=== PATIENT | male | born 1995 | race Caucasian/White ===

== ENCOUNTER 2021-04-18 10:34 | Emergency (ER) | payer OTHER ==
[2021-04-18 10:40] VITALS: BP 122/68; PULSE 65; TEMP 98.4; BMI 29.1
[2021-04-18 11:45] LABS: BASO % 0.4 % (0-2.0); EOS % 2.4 % (0-4.5); HEMATOCRIT 46.4 % (35.4-49); HEMOGLOBIN 15.8 GM/dL (11.7-16.9); LYMPH % 31.7 % (8-40); MCH 28.7 pg (25.7-33.7); MEAN CELL VOLUME 84.4 fl (80-96); MEAN PLT VOLUME 8.6 fl (7.5-11.1); MONO % 9.8 % (3.8-10.2); NEUT % 55.7 % (42.8-82.8); PLATELET COUNT 196 10^3/uL (134-434); RDW 13.2 % (11.9-15.9); WHITE BLOOD COUNT 4.9 K/mm3 (4.0-10.0)
[2021-04-18 12:03] LABS: CHLORIDE 106 mmol/L (98-107); SODIUM 139 mmol/L (136-145)
[2021-04-18 12:05] LABS: CALCIUM 9.2 mg/dL (8.5-10.1)
[2021-04-18 12:06] LABS: ALBUMIN 4.3 g/dl (3.4-5.0); ANION GAP 5 MMOL/L (8-16); BLOOD UREA NITROGEN 12.3 mg/dL (7-18); CO2 28 mmol/L (21-32); GLUCOSE,RANDOM 88 mg/dL (74-106)
[2021-04-18 12:09] LABS: CREATININE 0.9 mg/dL (0.55-1.3); SGOT/AST 19 U/L (15-37); SGPT/ALT 30 U/L (13-61)
[2021-04-18 12:11] LABS: TOT PROT 7.7 g/dl (6.4-8.2)
[2021-04-18 12:12] LABS: ALK PHOS 102 U/L (45-117)
== END 2021-04-18 12:43 | disposition home or self-care (01) ==
LOC: JER 10:34
DX: R07.9 Chest pain, unspecified (principal)
CPT/HCPCS: 36415; 71046-TC-FY; 80053; 84443; 84484; 85025; 93005; 93010; 99284-25

== ENCOUNTER 2022-08-31 18:12 | Emergency (ER) | payer OTHER ==
[2022-08-31 18:30] VITALS: BP 134/74; PULSE 62; RESP 16; TEMP 98.6; BMI 31.1
[2022-08-31 21:07] LABS: BASO % 0.7 % (0-2.0); HEMATOCRIT 45.9 % (35.4-49); HEMOGLOBIN 15.4 GM/dL (11.7-16.9); LYMPH % 30.1 % (8-40); MCH 28.3 pg (25.7-33.7); MCHC 33.6 g/dl (32.0-35.9); MEAN CELL VOLUME 84.2 fl (80-96); MEAN PLT VOLUME 8.4 fl (7.5-11.1); MONO % 8.3 % (3.8-10.2); NEUT % 58.9 % (42.8-82.8); PLATELET COUNT 217 10^3/uL (134-434); RBC 5.45 M/mm3 (4.00-5.60); WHITE BLOOD COUNT 6.3 K/mm3 (4.0-10.0)
[2022-08-31 21:34] LABS: BLOOD UREA NITROGEN 13.2 mg/dL (7-18); CALCIUM 9.2 mg/dL (8.5-10.1)
[2022-08-31 21:37] LABS: CREATININE 0.8 mg/dL (0.55-1.3)
[2022-08-31 21:39] LABS: BILIRUBIN,TOTAL 0.3 mg/dL (0.2-1); TOT PROT 7.3 g/dl (6.4-8.2)
== END 2022-08-31 22:11 | disposition home or self-care (01) ==
LOC: JER 18:12
DX: R00.2 Palpitations (principal)
CPT/HCPCS: 36415; 80053; 84484; 85025; 93005; 93010; 99284-25